=== PATIENT | female | born 1995 ===

== ENCOUNTER 2025-03-27 23:12 | Emergency (ER) | payer OTHER ==
[~2025-03-27] VITALS: Ht 160 cm; Wt 84.5 kg
[2025-03-28 00:19] LABS: BASOPHILS 0.5 % (0.1-1.2); EOSINOPHILS 0.8 % (0.7-5.8); LYMPHOCYTES 24.5 % (19.3-51.7); MCH 28.3 PG (25.6-32.2); MCHC 33.4 g/dL (32.2-35.5); MCV 84.7 fL (79.4-94.8); MONOCYTES 8.2 % (4.7-12.5); NEUTROPHILS 65.7 % (34.0-71.1); RBC 4.70 M/uL (3.93-5.22)
[2025-03-28 00:35] LABS: ALT (SGPT) 42.0 U/L (14-59); AST (SGOT) 19.0 U/L (15-37); GLOMERULAR FILTRATION RATE,EST 97.0 mL/min (>60); PROTEIN, TOTAL 7.4 g/dL (6.4-8.2); UREA NITROGEN 9.0 mg/dL (7-18)
[2025-03-28 00:54] VITALS: BP 118/78
== END 2025-03-28 00:55 | disposition home or self-care (01) ==
LOC: ED 23:12
PROVIDERS: Family Medicine
DX: N92.0 Excessive and frequent menstruation with regular cycle (principal)
CPT/HCPCS: 36415; 80053; 84702; 85025; 99284